=== PATIENT | female | born 1960 | race Two or more races ===

== ENCOUNTER 2017-08-11 18:57 | Emergency (ER) | payer MEDICAID ==
[~2017-08-11] VITALS: Ht 160 cm; Wt 77.1 kg
[~2017-08-11 18:57] MED LIST: MYLANTA30 ML PO; PROTONIX40 MG PO; VICODIN 5-5001 EACH PO; [UNRECOGNIZED DRUG - REMARK]
[2017-08-11] MEDS ORDERED: Ketorolac 30mg Inj IV ONE (19:30)
[2017-08-11] MEDS ORDERED: Acetaminophen 500mg (ES) tab ORAL ONE (19:30)
[2017-08-11 19:58] LABS: BASOPHILS % (AUTO) 1.1 % (0.0-2.0); EOSINOPHILS % (AUTO) 1.7 % (0.0-3.0); LYMPHOCYTES % (AUTO) 19.6 % (20.0-45.0); MEAN CORPUSCULAR VOLUME 85 FL (80-99); MEAN PLATELET VOLUME 8.2 FL (6.5-10.1); MONOCYTES % (AUTO) 7.2 % (1.0-10.0); NEUTROPHILS % (AUTO) 70.5 % (45.0-75.0); PLATELET COUNT 186 K/UL (150-450); RED CELL DISTRIBUTION WIDTH 11.9 % (11.6-14.8); WHITE BLOOD COUNT 7.1 K/UL (4.8-10.8)
[2017-08-11 20:13] LABS: INR 0.9 (0.9-1.1); PROTHROMBIN TIME 9.4 SEC (9.30-11.50)
[2017-08-11 20:14] LABS: ALANINE AMINOTRANSFERASE 28 U/L (12-78); ALBUMIN/GLOBULIN RATIO 0.8 (1.0-2.7); ANION GAP 9 mmol/L (5-15); ASPARTATE AMINO TRANSFERASE 61 U/L (15-37); CALCIUM 8.4 MG/DL (8.5-10.1); CARBON DIOXIDE 26 MMOL/L (21-32); CHLORIDE 99 MMOL/L (98-107); CREATININE 0.9 MG/DL (0.55-1.30); GLOMERULAR FILTRATION RATE > 60 mL/min (>60); SODIUM 135 MMOL/L (136-145); TOTAL PROTEIN 8.4 G/DL (6.4-8.2)
[2017-08-11 20:25] LABS: REFLEX LACTIC ACID YES OR NO YES
[2017-08-11 20:26] LABS: POTASSIUM 6.2 MMOL/L (3.5-5.1)
--- NOTE | 2017-08-11 20:50 | Emergency Room Report ---
History of Present Illness General Chief Complaint: Upper Respiratory Illness Source: Patient Present Illness HPI The patient presents with 3 weeks of illness. She complains of respiratory infection. She was treated initially with antibiotics for 5 days. She has worsened in the last 3 days with fevers, chills and right-sided chest pain. She 's had nausea and one episode of vomiting yesterday. She denies any diarrhea. She does have some dysuria feeling that her urine is hot. There is no hematuria. She's never had pneumonia in the past. Her daughter is also ill with URI. Chest pain is pleuritic lower L anterior chest and felt in ribs, not radiating. + sinus congestion. The patient did not receive a flu vaccination and she has an adverse reaction to flu vaccine. No diarrhea, rashes. Headache. Allergies: Coded Allergies: NAPROXEN (Verified Allergy, Unknown, 09/25/10) Patient History Past Medical History: see triage record Social History: Denies: smoking, alcohol use, drug use Social History Narrative with daughter - Now: No Reviewed Nursing Documentation: PMH: Agreed, PSxH: Agreed Nursing Documentation-PMH Hx Cardiac Problems: Yes - angina Hx Hypertension: Yes Hx Pacemaker: No Hx Asthma: No Hx COPD: No Hx Diabetes: Yes Hx Cancer: No Hx Gastrointestinal Problems: Yes Hx Dialysis: No Hx Neurological Problems: No Hx Cerebrovascular Accident: No Hx Seizures: No Review of Systems All Other Systems: negative except mentioned in HPI Physical Exam Vital Signs Date Time Temp Pulse Resp B/P (MAP) Pulse Ox O2 Delivery O2 Flow Rate FiO2 08/11/17 19:04 102.0 132 18 126/79 99 Room Air Sp02 EP Interpretation: reviewed, normal General Appearance: no apparent distress, GCS 15, other - febrile and feeling ill Head: normocephalic Eyes: bilateral eye normal inspection, bilateral eye PERRL ENT: moist mucus membranes Neck: supple Respiratory: lungs clear, normal breath sounds Cardiovascular #1: tachycardia Cardiovascular #2: 2+ radial (R) Gastrointestinal: normal inspection, normal bowel sounds, non tender, no mass, non-distended Genitourinary: no CVA tenderness Musculoskeletal: back normal, gait/station normal, normal range of motion Neurologic: alert, oriented x3, grossly normal Psychiatric: mood/affect normal - but feels ill Skin: normal inspection, warm/dry Medical Decision Making Diagnostic Impression: Primary Impression: UTI (urinary tract infection) Qualified Codes: N39.0 - Urinary tract infection, site not specified Additional Impressions: Chest pain Qualified Codes: R07.1 - Chest pain on breathing Pleurisy ER Course Patient presents with fever and cough. This has been going on for 3 weeks but worsened over the last 3 days. Differential includes influenza, pneumonia, bronchitis, viral process amongst others. Pleuritic chest pain concerning for PE, but fever and normal O2 sat makes this less likely. The patient is evaluated with EKG, chest x-ray and labs. She'll be treated with IV hydration, Tylenol and a small dose of Toradol. She states her Naprosyn allergy is a rash and she is not allergic to aspirin or Motrin. Based on her x-ray and flu swab we will determine whether we are going to start antibiotics or not. EKG tachycardia, no strain or R axis. CXR clear, Labs with nl WBC, elevated lactate (initial high K repeated normal), pyuria. Flu negative. IV antibiotics begun. Patient still with pain and treated. Improved with treatment. Patient stable for outpatient observation and treatment. Laboratory Tests Test 08/11/17 19:47 08/11/17 21:45 08/11/17 21:52 White Blood Count 7.1 K/UL (4.8-10.8) Red Blood Count 4.80 M/UL (4.20-5.40) Hemoglobin 13.5 G/DL (12.0-16.0) Hematocrit 40.7 % (37.0-47.0) Mean Corpuscular Volume 85 FL (80-99) Mean Corpuscular Hemoglobin 28.0 PG (27.0-31.0) Mean Corpuscular Hemoglobin Concent 33.0 G/DL (32.0-36.0) Red Cell Distribution Width 11.9 % (11.6-14.8) Platelet Count 186 K/UL (150-450) Mean Platelet Volume 8.2 FL (6.5-10.1) Neutrophils (%) (Auto) 70.5 % (45.0-75.0) Lymphocytes (%) (Auto) 19.6 % (20.0-45.0) L Monocytes (%) (Auto) 7.2 % (1.0-10.0) Eosinophils (%) (Auto) 1.7 % (0.0-3.0) Basophils (%) (Auto) 1.1 % (0.0-2.0) Prothrombin Time 9.4 SEC (9.30-11.50) Prothrombin Time INR 0.9 (0.9-1.1) PTT 26 SEC (23-33) Sodium Level 135 MMOL/L (136-145) L 137 MMOL/L (136-145) Potassium Level 6.2 MMOL/L (3.5-5.1) *H 3.1 MMOL/L (3.5-5.1) L Chloride Level 99 MMOL/L (98-107) 107 MMOL/L (98-107) Carbon Dioxide Level 26 MMOL/L (21-32) 23 MMOL/L (21-32) Anion Gap 9 mmol/L (5-15) 7 mmol/L (5-15) Blood Urea Nitrogen 10 mg/dL (7-18) 10 mg/dL (7-18) Creatinine 0.9 MG/DL (0.55-1.30) 0.8 MG/DL (0.55-1.30) Estimate Glomerular Filtration Rate > 60 mL/min (>60) > 60 mL/min (>60) Glucose Level 167 MG/DL (74-106) H 155 MG/DL (74-106) H Lactic Acid Level 2.30 mmol/L (0.66-2.22) H 1.30 mmol/L (0.66-2.22) Calcium Level 8.4 MG/DL (8.5-10.1) L 6.9 MG/DL (8.5-10.1) L Total Bilirubin 0.6 MG/DL (0.2-1.0) Aspartate Amino Transferase (AST) 61 U/L (15-37) H Alanine Aminotransferase (ALT) 28 U/L (12-78) Alkaline Phosphatase 110 U/L (46-116) Troponin I 0.000 ng/mL (0.000-0.056) Total Protein 8.4 G/DL (6.4-8.2) H Albumin 3.6 G/DL (3.4-5.0) Globulin 4.8 g/dL Albumin/Globulin Ratio 0.8 (1.0-2.7) L Urine Color Pale yellow Urine Appearance Slightly cloudy Urine pH 8 (4.5-8.0) Urine Specific Mack 1.015 (1.005-1.035) Urine Protein 1+ (NEGATIVE) H Urine Glucose (UA) Negative (NEGATIVE) Urine Ketones 1+ (NEGATIVE) H Urine Occult Blood 3+ (NEGATIVE) H Urine Nitrite Negative (NEGATIVE) Urine Bilirubin Negative (NEGATIVE) Urine Urobilinogen Normal MG/DL (0.0-1.0) Urine Leukocyte Esterase 3+ (NEGATIVE) H Urine RBC 15-20 /HPF (0 - 2) H Urine WBC 40-60 /HPF (0 - 2) H Urine Squamous Epithelial Cells Moderate /LPF (NONE/OCC) H Urine Bacteria Many /HPF (NONE) H Microbiology Date/Time Source Procedure Growth Status 08/11/17 21:50 Nasal Nares Influenza Types A,B Antigen (DAVID) - Final Complete EKG Diagnostic Results Rate: tachycardiac Rhythm: NSR ST Segments: no acute changes Rhythm Strip Diag. Results EP Interpretation: yes Rhythm: no PVC's, no ectopy, other - ST Chest X-Ray Diagnostic Results Chest X-Ray Diagnostic Results : Chest X-Ray Ordered: Yes # of Views/Limited/Complete: 1 View Indication: Other Interpretation: no consolidation, no effusion, no pneumothorax, no acute cardiopulmonary disease Impression: No acute disease Electronically Signed by: Electronically signed by Karson Marie MD Last Vital Signs Date Time Temp Pulse Resp B/P (MAP) Pulse Ox O2 Delivery O2 Flow Rate FiO2 08/12/17 02:05 82 16 118/76 99 Room Air 08/12/17 01:45 98.3 Status: improved Disposition: HOME, SELF-CARE Condition: Improved Scripts Chlorpheniramine Maleate (CHLOR-TRIMETON) 4 Mg Tablet 4 MG PO Q6HR, #10 TAB 1 Refill Prov: Karson Marie M.D. 08/12/17 Ibuprofen* (MOTRIN*) 600 Mg Tablet 600 MG ORAL Q6H Y for For Pain, #20 TAB Prov: Karson Marei M.D. 08/12/17 Promethazine HCl/Codeine (Prometh-Codein 6.25-10 mg/5 ml) 5 Ml Syrup 5 ML PO Q6HR, #90 ML Prov: Karson Marie M.D. 08/12/17 Levofloxacin* (LEVAQUIN*) 500 Mg Tablet 500 MG ORAL DAILY, #10 TAB Prov: Karson Marie M.D. 08/12/17 Referrals: NON PHYSICIAN (PCP) Karson Marie M.D. Aug 11, 2017 20:50
[2017-08-11 22:15] LABS: APPEARANCE,URINE SLIGHTLY CLOUDY; KETONES,URINE 1+ (NEGATIVE); LEUKOCYTE ESTERASE ,URINE 3+ (NEGATIVE); NITRITE,URINE NEGATIVE (NEGATIVE); PH,URINE 8 (4.5-8.0); PROTEIN,URINE 1+ (NEGATIVE); UROBILINOGEN,URINE NORMAL MG/DL (0.0-1.0)
[2017-08-11 22:24] LABS: BACTERIA,URINE MANY /HPF; RBC,URINE 15-20 /HPF (0 - 2); SQUAMOUS EPITHELIAL CELL,UR MODERATE /LPF (NONE/OCC); WBC,URINE 40-60 /HPF (0 - 2)
[2017-08-11] MEDS ORDERED: cefTRIAXone 1 GM in NS 55 ML IVPB ONE (22:45)
[2017-08-11 23:34] LABS: ANION GAP 7 mmol/L (5-15); CALCIUM 6.9 MG/DL (8.5-10.1); CARBON DIOXIDE 23 MMOL/L (21-32); CHLORIDE 107 MMOL/L (98-107); CREATININE 0.8 MG/DL (0.55-1.30); GLOMERULAR FILTRATION RATE > 60 mL/min (>60); POTASSIUM 3.1 MMOL/L (3.5-5.1); SODIUM 137 MMOL/L (136-145)
[2017-08-11 23:42] VITALS: BP 109/71
[2017-08-12] MEDS ORDERED: oxyCODONE HCL/Acetaminophen 5/325mg ORAL ONE ×2 (01:00→01:35)
[2017-08-12] MEDS ORDERED: PROMETH-CODEIN 65 ML PO (01:35)
[2017-08-12] MEDS ORDERED: LEVAQUIN500 MG ORAL (01:35)
[2017-08-12] MEDS ORDERED: IBUPROFEN600 MG ORAL (01:35)
[2017-08-12 01:45] VITALS: BP 118/76
[2017-08-12] MEDS ORDERED: CHLOR-TRIMETON4 MG PO (01:47)
[2017-08-12 02:05] VITALS: BP 118/76
--- NOTE | 2017-08-12 12:19 | Diagnostic Imaging Report ---
Indication: Cough Comparison: None A single view chest radiograph was obtained. Findings: Cardiomediastinal appearance is within normal limits for age. Pulmonary vascularity is appropriate. The diaphragmatic contour is smooth and costophrenic angles are sharp. No pleural effusions are identified. The bones are unremarkable. Impression: No acute findings
--- NOTE | 2017-08-26 00:25 | Cardiology Report ---
APPROVED REPORT EKG Measurement Heart [id number] Sinus tachycardia Otherwise normal ECG
== END 2017-08-12 02:12 | disposition home or self-care (01) ==
LOC: EDUNIT# 18:57 → EMR 20:44
DX: N39.0 Urinary tract infection, site not specified (principal); R07.9 Chest pain, unspecified; I10 Essential (primary) hypertension; E11.9 Type 2 diabetes mellitus without complications
CPT/HCPCS: 36415; 71010; 80048; 80053; 81003; 83605; 84484; 85025; 85610; 85730; 86710; 87086; 87181; 93005; 96361; 96365; 96375; 99284; J0696; J1885

== ENCOUNTER 2017-08-16 18:45 | Emergency (ER) | payer MEDICAID ==
[~2017-08-16] VITALS: Ht 160 cm; Wt 53.1 kg
[~2017-08-16 18:45] MED LIST changes: +CHLOR-TRIMETON4 MG PO; +IBUPROFEN600 MG ORAL; +LEVAQUIN500 MG ORAL; +PROMETH-CODEIN 65 ML PO
[2017-08-16 19:54] VITALS: BP 109/72
[2017-08-16] MEDS ORDERED: ACETAMINOPHEN-1 EAC1 ORAL (19:55)
[2017-08-16 19:59] VITALS: BP 109/72
--- NOTE | 2017-08-17 22:36 | Emergency Room Report ---
History of Present Illness General Chief Complaint: General Complaint Source: Patient Present Illness HPI 57-year-old female presents to ED for evaluation. Patient was called back to ED for further evaluation. Patient was seen here a few days ago. Diagnosed with possible pneumonia and discharged on antibiotics. Patient was called back today by Dr Marie; given that patient was having some chest wall pain she was instructed to come back to ED for further evaluation. Upon arrival patient states she has pain in her right upper back and right-sided chest, 7/10, throbbing, worse with deep coughing. Denies any shortness of breath. She states she overall feels better; the coughing has improved but persists. No other aggravating or relieving factors. Denies any other associated symptoms Allergies: Coded Allergies: NAPROXEN (Verified Allergy, Unknown, 09/25/10) Patient History Past Medical History: DM, HTN Past Surgical History: none Pertinent Family History: none Social History: Denies: smoking, alcohol use, drug use Last Menstrual Period: NA Now: No Immunizations: UTD Reviewed Nursing Documentation: PMH: Agreed, PSxH: Agreed Nursing Documentation-PMH Hx Cardiac Problems: Yes - angina Hx Hypertension: Yes Hx Pacemaker: No Hx Asthma: No Hx COPD: No Hx Diabetes: Yes Hx Cancer: No Hx Gastrointestinal Problems: Yes Hx Dialysis: No Hx Neurological Problems: No Hx Cerebrovascular Accident: No Hx Seizures: No Review of Systems All Other Systems: negative except mentioned in HPI Physical Exam Vital Signs Date Time Temp Pulse Resp B/P (MAP) Pulse Ox O2 Delivery O2 Flow Rate FiO2 08/16/17 19:06 97.9 99 20 113/70 97 Room Air Sp02 EP Interpretation: reviewed, normal General Appearance: no apparent distress, alert, GCS 15, non-toxic Head: normocephalic, atraumatic Eyes: bilateral eye normal inspection, bilateral eye PERRL ENT: hearing grossly normal, normal pharynx, no angioedema, normal voice Neck: full range of motion, supple/symm/no masses Respiratory: lungs clear, normal breath sounds, speaking full sentences, other - reproducible R anterior chest wall pain Cardiovascular #1: regular rate, rhythm, no edema Cardiovascular #2: 2+ carotid (R), 2+ carotid (L), 2+ radial (R), 2+ radial (L) , 2+ dorsalis pedis (R), 2+ dorsalis pedis (L) Gastrointestinal: normal bowel sounds, non tender, soft, non-distended, no guarding, no rebound Rectal: deferred Genitourinary: normal inspection, no CVA tenderness Musculoskeletal: back normal, gait/station normal, normal range of motion, tender - paraspinal thoracic pain under R shoulder blade Neurologic: alert, oriented x3, responsive, motor strength/tone normal, sensory intact, speech normal Psychiatric: judgement/insight normal, memory normal, mood/affect normal, no suicidal/homicidal ideation Reflexes: 3+ bicep (R), 3+ bicep (L), 3+ tricep (R), 3+ tricep (L), 3+ knee (R) , 3+ knee (L) Skin: normal color, no rash, warm/dry, well hydrated Lymphatic: no adenopathy Medical Decision Making Diagnostic Impression: Primary Impression: Chest wall pain ER Course Hospital Course 57-year-old female presents ED complaining of reproducible pain during coughing. Recently seen in ED Differential diagnoses include: Fracture, dislocation, sprain, contusion Clinical course Patient placed on stretcher. After initial history, physical exam reveals an middle-aged female in no acute distress. There is some reproducible tenderness noted to the right anterior chest and to the paraspinal region at the thoracic level. Reviewed EMR patient was seen here with productive cough and questionable pneumonia. Patient was started on antibiotics. Workup on previous admission was unremarkable. Clinically I see no reason to repeat any further testing. Reassurance given to the patient. The pain is muscular; and will resolve if she continue the antibiotics and cough medications. patient agrees with assessment and wants to be discharged Diagnosis - chest wall pain stable and discharged to home with prescription for Tylenol #3. continue previously prescribed medications. Followup with PMD. Return to ED if symptoms recur or worsen Last Vital Signs Date Time Temp Pulse Resp B/P (MAP) Pulse Ox O2 Delivery O2 Flow Rate FiO2 08/16/17 19:59 97.9 84 20 109/72 96 Room Air Status: improved Disposition: HOME, SELF-CARE Condition: Stable Scripts Acetaminophen With Codeine (T#3) (TYLENOL #3 TAB*) Y Tab 1 TAB ORAL Q8H Y for For Pain, #20 TAB Prov: DESTINEY CRISTINA M.D. 08/16/17 Referrals: NON PHYSICIAN (PCP) Patient Instructions: Chest Wall Pain, [id number] DESTINEY CRISTINA M.D. Aug 17, 2017 22:36
== END 2017-08-16 20:00 | disposition home or self-care (01) ==
LOC: EMR 19:30
DX: R07.89 Other chest pain (principal); E11.9 Type 2 diabetes mellitus without complications; I10 Essential (primary) hypertension
CPT/HCPCS: 99283